=== PATIENT | male | born 1985 | race Caucasian/White ===

== ENCOUNTER 2024-06-15 09:45 | Emergency (ER) | payer MEDICAID, SELFPAY ==
[2024-06-15 09:55] VITALS: BP 147/105; PULSE 84; TEMP 36.6; O2SAT 98; BMI 31.3
[2024-06-15 10:02] VITALS: RESP 20
--- NOTE | 2024-06-15 10:05 | ED_ITS ---
HPI - General Adult General Chief complaint: Unspecified Complaint, Adult Stated complaint: intermittent chest pain,blurry vision,dizzy Time Seen by Provider: 06/15/24 09:51 History of Present Illness HPI narrative: PMH HTN. 2 days of symptoms of numbness/ tingling in lower extremities , sharp CP experience 2 days ago, headache during event rating 7 at time. Denies CP and headache. C/o of blurry vision . Takes Adderall but has not been taking it per pt report. 39-year-old man presenting to the emergency department with a number of concerns. Couple of weeks ago was in [facility] and had onset of right eye with blurry vision and some mild dizziness. Headache as well. Pharmacist suggested that maybe was hypoglycemic and recommended Gatorade and/or candy bar. Seemed to get better. More frequently now when he lays down at night has been having tingling in his hands bilaterally and feet and lower legs; evidently last most of the night. Seems to resolve during the day. Also gets some lower extremity numbness with extended driving. This seems to be different than the tingling issues describing overnight. Denies constipation. Has been having a pain in his left, as demonstrated, lower chest/upper abdomen coming and going over the last 2 months or so. 2 nights ago woke coughing with a terrible headache and right eye blurry vision for 5-10 minutes. Denies a history of heartburn. Did has some chest discomfort left left side briefly at that time as well. Lasted seconds. He has gained approximately 20 lb over the last 6 months. Admits also that diet is not very good disease often out and running around in his job in [employer]. Sometimes drinks on the weekends but generally does not drink much alcohol any more. Is not actually describing weakness. Did note the last time he measured his blood pressures they were rather elevated. This had been on a day when he did take his Adderall. Family history of Alzheimer's in a grandparent but otherwise no neurological disorders identified. Related Data Allergies Allergy/AdvReac Type Severity Reaction Status Date / Time No Known Drug Allergies Allergy Verified 06/15/24 10:01 Review of Systems Status of ROS: Reports: 6 or more systems reviewed and unremarkable except as noted in History and below PFSH PFS Social History Smoking Status: Never smoker How often do you have a drink containing alcohol: monthly or less How many standard drinks containing alcohol do you have on a typical day: 1 or 2 How often do you have six or more drinks on one occasion: Never AUDIT-C Alcohol total score: 1 Non-prescribed substance use: denies use Exam Narrative: Exam Narrative: Pleasant. NAD. Cranial nerves 2-12 intact. Moving all extremities without difficulty; full strength throughout. Sensation intact. Skin is warm and dry without apparent rash. Heart in regular rate and rhythm without murmur rub or gallop. Lungs are clear. Abdomen is overweight and soft. No wall defect appreciated. No masses. He is tender in the left upper abdomen in a rather discrete area about or just below probable stomach and he is also tender a little bit along the left midclavicular line anterior rib edge. Is also little tender left upper chest mid pectoralis. Neck is supple. Back and neck or nontender. Lungs are clear. Equal pulses upper extremities Const: Vital Signs, click to edit/add: Vital Signs - 24 hr 06/15/24 09:55 06/15/24 10:02 06/15/24 11:40 Temperature 97.8 F Pulse Rate [Pulse Oximeter] 84 85 Respiratory Rate 20 Blood Pressure [Le ft Upper Arm] 147/105 H 140/97 H Pulse Oximetry 98 Oxygen Delivery Me thod Room Air 06/15/24 11:43 06/15/24 16:25 Temperature Pulse Rate [Pulse Oximeter] 87 Respiratory Rate Blood Pressure [Le ft Upper Arm] 140/97 H 146/103 H Pulse Oximetry Oxygen Delivery Me thod Documenting provider has reviewed patient's vital signs: yes Course Vital Signs Vital signs: Initial Vital Signs Temperature 97.8 F 06/15/24 09:55 Temperature Source Temporal Artery Scan 06/15/24 09:55 Pulse Rate 84 06/15/24 09:55 Pulse Rhythm Regular 06/15/24 09:55 Blood Pressure 147/105 H 06/15/24 09:55 Blood Pressure Mean 119 H 06/15/24 09:55 Pulse Oximetry 98 06/15/24 09:55 Oxygen Delivery Method Room Air 06/15/24 09:55 Vital Signs Temperature 97.8 F 06/15/24 09:55 Pulse Rate 84 06/15/24 09:55 Blood Pressure 147/105 H 06/15/24 09:55 Pulse Oximetry 98 06/15/24 09:55 Oxygen Delivery Method Room Air 06/15/24 09:55 Temperature 97.8 F 06/15/24 09:55 Pulse Rate 87 06/15/24 16:25 Respiratory Rate 20 06/15/24 10:02 Blood Pressure 146/103 H 06/15/24 16:25 Pulse Oximetry 98 06/15/24 09:55 Oxygen Delivery Method Room Air 06/15/24 09:55 Medications Administered Medications: Discontinued Medications Generic Name Dose Route Start Last Admin Trade Name Frederick PRN Reason Stop Dose Admin Sodium Chloride 1,000 mls @ 1,000 mls/hr 06/15/24 12:33 06/15/24 13:28 0.9 % Sodium Chloride 1000 Ml IV 06/15/24 13:32 Infused .Q1H ONE Infusion Medical Decision Making MDM Narrative Medical decision making narrative: Differential includes vascular dissection, MS, thrombotic event/CVA, tachyarrhythmia, constipation, anxiety, migrainous type headache with blurry vision, normal pressure hydrocephalus, dehydration. Screen initially with labs. I am less concerned about this abdominal pain at this time. Perhaps this could be worked up outpatient. Given how he describes his diet, would strongly recommend making some changes over the next couple weeks reassessing abdominal discomfort. There is a little bit of chest wall pain here as well. More concerned about the transient blurring of vision and headache and peripheral paresthesia. Is not a persistent thing that 1 might associate with vitamin deficiency/alcoholism. No family history of unusual neurological disorders. I think some of his symptoms including some discomfort in his upper thigh at times or numbness while seated can be explained by increased abdominal girth/weight gain. Labs are unremarkable. Did discuss these findings with Neurology on-call and would support MRI and MRA head and neck with differential as noted above. Mr. Levin had presented to the clinic earlier today and blood was collected; he does not believe that this was run for anything. He has been fasting and would appreciate recheck of his cholesterol/lipid panel. I can add this on to labs here today and he can follow these up in primary care clinic. He indicates that cholesterol has been high before. MRI MRA head neck is overall reassuring. No further events during time in the emergency department. See patient discharge plan for further discussion Medical Records Medical records reviewed: Yes I reviewed the patient's medical records (None available) Lab Data Lab results reviewed: Yes I reviewed the patient's lab results Labs: Lab Results 06/15/24 06/15/24 06/15/24 Range/Units 10:25 10:38 13:09 WBC 8.25 (4.50-11.00) K/uL RBC 5.66 (4.30-5.90) m/uL Hgb 16.1 (13.5-17.5) gm/dL Hct 48.6 (37.0-53.0) % MCV 86 (80-100) fL MCH 28 (26-34) pg MCHC 33 (32-36) gm/dL RDW Coeff of Irene 12.5 (11.5-15.5) % Plt Count 327 (140-440) K/uL Neut % (Auto) 51.6 (42.0-72.0) % Lymph % (Auto) 36.1 (20-44) % [place] % (Auto) 9.0 (0.0-11.0) % Eos % (Auto) 2.3 (0.0-7.0) % Baso % (Auto) 0.2 (0.0-3.0) % Neut # (Auto) 4.25 (1.7-7.0) K/uL Lymph # (Auto) 2.98 H (0.90-2.90) K/uL [place] # (Auto) 0.70 (0.00-0.90) K/UL Eos # (Auto) 0.19 (0.00-0.50) K/uL Baso # (Auto) 0.02 (0.00-0.30) K/uL Abs Immat Gran (auto) 0.07 (0.00-0.30) K/uL Imm/Tot Granulo (auto) 0.8 % D-Dimer Quant (PE/DVT) < 0.27 (0.00-0.50) ug/ml Sodium 138 (135-149) mmol/L Potassium 4.2 (3.6-5.1) mmol/L Chloride 104 (96-114) mmol/L Carbon Dioxide 26 (20-32) mmol/L Anion Gap 8 (7-15) mEq/L BUN 17 (5-24) mg/dL Creatinine 1.0 (0.5-1.5) mg/dL Estimated Creat Clear 100.16 Estimated GFR 99 ml/min Glucose 99 (60-115) mg/dL Calcium 9.1 (8.4-10.6) mg/dL Magnesium 2.3 (1.5-2.6) mg/dL Troponin I < 0.01 L (0.01-0.04) ng/mL C-Reactive Protein < 0.5 L (0.5-1.0) mg/dL NT-Pro-B Natriuret Pep < 20 pg/mL Triglycerides 286 H (40-149) mg/dL Cholesterol 192 (90-199) mg/dL LDL Cholesterol, Calc 99 (<100) mg/dL HDL Cholesterol 36 L (>=40) mg/dL Lab Acknowledgement Test Added POC Troponin I 0.00 L (0.01-0.04) ng/ml ECG Data Attestation: I personally reviewed and interpreted this ECG as follows: (Normal sinus rhythm at a rate of 81 without ischemic changes) Discharge Plan Discharge Clinical Impression: Malaise, Paresthesia, High blood pressure, Headache Patient Disposition: Home, Self-Care Condition: Stable Additional Instructions: Other than blood pressure, everything looked quite good here today. Stay well-hydrated trying to drink 2-3 L of water daily, depending on level exertion. Improving your diet and physical activity should make a big difference for you. Would schedule follow-up with your primary care provider for a few weeks from now to recheck blood pressures and discuss your efforts at weight loss and healthy living. Reassess your abdominal discomfort around that time too. Try to get in a little heart pumping exercise most days of the week; this should also include weights. Keep getting quality and regular sleep. Follow Up/Referrals: Nelly Paz DO [Primary Care Provider] - Stand Alone Forms: [facility] Info Instructions
--- OUTSIDE RECORDS SUMMARY | 2024-06-15 10:37 | XMS_ITS | Referral Summary ---
Author Organization [facility] Address [address] [place] [address]. [place] [address] Care Team Providers Care Enamel Finisher Name Role Phone Nelly Paz Primary Care Provider [phone] Allergies No known active allergies Medications Medication Sig Dispensed Refills Start Date End Date Status amphetamine-dextroamphe tamine (ADDERALL XR) 20 MG 24 hr capsule Take 20 mg by mouth 08/11/2018 Active Social History Tobacco Use Types Packs/Day Years Used Date Smoking Tobacco: Never Smokeless Tobacco: Never Alcohol Use Standard Drinks/Week Comments Yes 0 (1 standard drink = 0.6 oz pur e alcohol) occasional Sex and Gender Information Value Date Recorded Sex Assigned at Not on file Gender Identity Not on file Sexual Orientation Not on file Last Filed Vital Signs Vital Sign Reading Time Taken Comments Blood Pressure 144/96 01/30/2019 3:00 PM DEMAND GENERATION MANAGER Pulse 86 01/30/2019 3:00 PM DEMAND GENERATION MANAGER Temperature 36.7 ??C (98.1 ??F) 01/30/2019 1:02 PM CS T Respiratory Rate 15 01/30/2019 3:00 PM DEMAND GENERATION MANAGER Oxygen Saturation 98% 01/30/2019 3:00 PM DEMAND GENERATION MANAGER Inhaled Oxygen Concentration - - Weight 82.4 kg (181 lb 10.5 oz) 01/30/2019 1:02 PM DEMAND GENERATION MANAGER Height 172.7 cm (5' 8) 10/29/2011 2:59 PM DEMAND GENERATION MANAGER Body Mass Index 27.62 10/29/2011 2:59 PM DEMAND GENERATION MANAGER Plan of Treatment Not on file Care Teams Enamel Finisher Relationship Specialty Start Date End Date Nelly Paz DO PCP - General Family Practice 01/30/19
--- OUTSIDE RECORDS SUMMARY | 2024-06-15 10:37 | XMS_ITS | Clinical Summary ---
Author Organization [facility] Address [place], [place] [address] Care Team Providers Care Central Supply Aide Name Role Phone Brandi Nelly Margi Primary Care Provider Allergies No known active allergies Medications Medication Sig Dispensed Refills Start Date End Date Status valACYclovir (VALTREX) 1 gram tabletIndications:H erpes labialis Take 2 Tablets (2 g) by mouth two times daily. 8 Tablet 6 12/11/2023 Active dextroamphetamine-a mphetamine (Adderall XR) 20 mg Extended-Release capsuleIndications: Attention deficit hyperactivity disorder (ADHD), combined type Take 1 Capsule (20 mg) by mouth once daily. 30 Capsule 05/28/2024 4 Active dextroamphetamine-a mphetamine (Adderall XR) 20 mg Extended-Release capsuleIndications: Attention deficit hyperactivity disorder (ADHD), combined type Take 1 Capsule (20 mg) by mouth once daily. 30 Capsule 06/27/2024 4 Active dextroamphetamine-a mphetamine (Adderall XR) 20 mg Extended-Release capsuleIndications: Attention deficit hyperactivity disorder (ADHD), combined type Take 1 Capsule (20 mg) by mouth once daily. 30 Capsule 07/27/2024 Active dextroamphetamine-a mphetamine (AdderalL) 10 mg tabletIndications:A ttention deficit hyperactivity disorder (ADHD), combined type Take 1 Tablet (10 mg) by mouth once daily. 30 Tablet 05/28/2024 4 Active dextroamphetamine-a mphetamine (AdderalL) 10 mg tabletIndications:A ttention deficit hyperactivity disorder (ADHD), combined type Take 1 Tablet (10 mg) by mouth once daily. 30 Tablet 06/27/2024 4 Active dextroamphetamine-a mphetamine (AdderalL) 10 mg tabletIndications:A ttention deficit hyperactivity disorder (ADHD), combined type Take 1 Tablet (10 mg) by mouth once daily. 30 Tablet 07/27/2024 Active fluticasone (50 mcg per actuation) nasal solution (FLONASE)Indication s:Chronic nasal congestion Inhale 1 [place] to both nostrils once daily. 16 g 3 12/20/2022 4 Discontinue d(*Patient states no longer taking) dextroamphetamine-a mphetamine (Adderall XR) 20 mg Extended-Release capsuleIndications: Attention deficit hyperactivity disorder (ADHD), combined type Take 1 Capsule (20 mg) by mouth once daily. 30 Capsule 02/09/2024 4 Discontinue d(*Medicati on adjustment) dextroamphetamine-a mphetamine (ADDERALL) 10 mg tabletIndications:A ttention deficit hyperactivity disorder (ADHD), combined type Take 1 Tablet (10 mg) by mouth once daily. 30 Tablet 02/09/2024 4 Discontinue d(*Medicati on adjustment) dextroamphetamine-a mphetamine (AdderalL) 10 mg tabletIndications:A ttention deficit hyperactivity disorder (ADHD), combined type Take 1 Tablet (10 mg) by mouth once daily. 30 Tablet 04/27/2024 4 Discontinue d(*Medicati on adjustment) dextroamphetamine-a mphetamine (Adderall XR) 20 mg Extended-Release capsuleIndications: Attention deficit hyperactivity disorder (ADHD), combined type Take 1 Capsule (20 mg) by mouth once daily. 30 Capsule 04/27/2024 4 Discontinue d(*Medicati on adjustment) Active Problems Problem Noted Date Diagnosed Date LIZBET 01/16/2023 AHI- 11 02/07/2023 Hypertriglyceridemia 11/18/2021 Dyslipidemia 09/12/2019 Gambling and betting 05/30/2017 History of marijuana use 08/07/2016 Myopia of both eyes with astigmatism 08/02/2016 Attention deficit hyperactivity disorder (ADHD) 07/04/2016 Controlled substance agreement signed 07/04/2016 Overview: Diagnosis: ADHD Adderall XR 20mg daily #30/month and Adderall 10mg daily no later than noon #30/month. Toxassure 07/04/2016 with THC. Repeat drug test 08/2016. [facility] pharmacy. Adjustment disorder with depressed mood 09/14/20 10 Viral warts, unspecified 12/05/2008 Resolved Problems Problem Noted Date Diagnosed Date Resolved Date Elevated blood pressure read ing without diagnosis of hypertension 11/09/2010 12/08/2015 Encounters Date Type Department Care Team Description 06/15/2024 7:55 AM CDT Office Visit [facility] [place] [address] [place] [address] Andreea Sellers PA Numbness (Legs and feet, one episode of chest pain and loss of vision in right eye ) 06/14/2024 11:00 AM CDT Nurse/Clinic Staff Only [facility] [address] [place] [address] Rosey Stone Rn Primary Blood Pressure 06/14/2024 Telephone [facility] [place] [id number] [place] [id number] Nelly Paz DO 06/14/2024 Telephone [facility] [place] [address] [place] [address] Andreea Sellers PA Appointment 06/14/2024 Travel 05/28/2024 10:45 AM CDT Office Visit [facility] [place] [address] [place] [address] Nelly Paz DO Medication Management (39 yo ) 05/28/2024 Travel from Last 3 Months Immunizations Name Administration Dates Next Due Influenza, IIV4 09/09/2019,09/25/2017,08/15/2016 ,12/08/2015 Influenza, IIV4 (=>6mos) MDV 09/11/2018 Td (Age >=7 Years) 12/10/2019,12/04/2005 Tdap 05/11/2010 Family History Medical History Relation Name Comments Psychiatric illness Mother depressi on Hypertension Paternal Grandfather Relation Name Status Comments Mother Paternal Grandfather Social History Tobacco Use Types Packs/Day Years Used Date Smoking Tobacco: Never Smokeless Tobacco: Never Tobacco Cessation:Counseling Given: No Alcohol Use Standard Drinks/Week Comments Yes 0 (1 standard drink = 0.6 oz pur e alcohol) socially PHQ-2 Answer Date Recorded PHQ-2 TOTAL SCORE 0 12/11/2023 Social Connections Answer Date Recorded Frequency of Communication with Friends and Fami ly Not on file 12/01/2021 Financial Resource Strain Answer Date R ecorded Difficulty of Paying Living Expenses Not on file 12/01/2021 Difficulty of Paying Living Expenses Not on file 12/01/2021 Sex and Gender Information Value Date Recorded Sex Assigned at Not on file Gender Identity Not on file Sexual Orientation Not on file Obstetrics History Last Filed Vital Signs Vital Sign Reading Time Taken Comments Blood Pressure 124/82 06/15/2024 8:05 AM CDT Pulse 97 06/15/2024 8:05 AM CDT Temperature 38.6 ??C (101.5 ??F) 11/07/2023 8:[address] Respiratory Rate 16 08/27/2016 1:38 PM CDT Oxygen Saturation 98% 06/15/2024 8:05 AM CDT Inhaled Oxygen Concentration - - Weight 96.2 kg (212 lb) 06/15/2024 8:05 AM CDT Height 175.3 cm (5' 9) 06/15/2024 8:05 AM CDT Body Mass Index 31.31 06/15/2024 8:05 AM CDT Plan of Treatment Upcoming Encounters Date Type Department Care Team (Late st Contact Info) Description 11/19/2024 9:30 AM COMMERCIAL LOAN ANALYST Office [place] [facility] [place] [address] [place] [address] [place] [address] [place] [address] Health Maintenance Due Date Last Done Comments COVID-19 vaccine series ( season) 2023 Influenza for age 9-49 08/01/2024 , 09/11/2018, 09/25/2017, Additional history exists Depression screening for age 12+ 12/11/2024 12/11/2023, 07/04/2022, 05/17/2021, Additional history exists BMI (ht and wt on same day) for age 18+ 06/15/2025 06/15/2024, 05/28/2024, 11/07/2023, Additional history exists Lipids for age 35-44 12/11/2028 12/11/2023, 11/16/2021, 09/09/2019, Additional history exists Tetanus booster 12/10/2029 12/10/2019, 05/01, 12/04/2005 Tdap Completed 05/11/2010 HIV for age 15-65 Completed 03/29/2021, , 06/11/2019, Additional history exists Hepatitis C screening for age 18-79 Completed 03/29/2021, 12/10/2019, 06/11/2019 Pneumococcal series for age 6-64 Aged Out No longer eligible based on patient's age to complete this topic Goals Goal Patient Goal Type Associated Problems Recent Progress Patient-Stated? Author BLOOD PRESSURE-MA INTAINS BP LESS THAN 130/80 Blood Pressure No Nelly Paz, Procedures Procedure Name Priority Date/Time Associated Diagnosis Comments LIPID PANEL W REFLEX MEASURED LDL Routine 12/11/2023 10:59 AM COMMERCIAL LOAN ANALYST Dyslipidemia ANTI HIV 1/2 Routine 03/29/2021 3:30 PM CDT Exposure to potentially hazardous body fluids Urinary frequency ANTI HCV Routine 03/29/2021 3:30 PM CDT Exposure to potentially hazardous body fluids Urinary frequency from Last 3 Months or Most Recently Relevant to Health Maintenance Results * (ABNORMAL) LIPID PANEL W REFLEX MEASURED LDL (12/11/2023 10:59 AM COMMERCIAL LOAN ANALYST) CHOLESTEROL,TOTAL 229(H) 100 - 199 mg/dL 12/11/2023 3:44 PM COMMERCIAL LOAN ANALYST [facility] Comment: Cholesterol, Total Reference Ranges Desirable <200 mg/dL Borderline 200-239 mg/dL High >=240 mg/dL TRIGLYCERIDES 284(H) <150 mg/dL 12/11/2023 3:44 PM COMMERCIAL LOAN ANALYST [facility] HDL CHOLESTEROL 42 >40 mg/dL 3:44 PM COMMERCIAL LOAN ANALYST [facility] NON-HDL CHOLESTEROL 187(H) <145 mg/dl 12/11/2023 3:44 PM COMMERCIAL LOAN ANALYST [facility] CHOL/HDL RATIO 5.45(H) <4.50 12/11/2023 3:44 PM COMMERCIAL LOAN ANALYST [facility] LDL CHOLESTEROL 130 <=130 mg/dL 12/11/2023 3:44 PM COMMERCIAL LOAN ANALYST [facility] VLDL CHOLESTEROL 57(H) <=30 mg/dL 12/11/2023 3:44 PM COMMERCIAL LOAN ANALYST [facility] PROVIDER ORDERED STATUS FASTING 12/11/2023 3:44 PM COMMERCIAL LOAN ANALYST [facility] Blood BLOOD SPECIMEN / Unknown Venipuncture / Unknown 12/11/2023 10:59 AM COMMERCIAL LOAN ANALYST 12/11/2023 10:59 AM COMMERCIAL LOAN ANALYST Nelly Paz DO CHEMISTRY Performing Organization Address City/[facility]/ZIP Co de Phone Number [facility] [address] [place] [address], * ANTI HCV (03/29/2021 3:30 PM CDT) HEPATITIS C ANTIBODY Non-React shivani Non-React shivani 03/30/2021 5:07 PM CDT [facility] Comment:Antibodies to HCV no t detected; does not exclude the possibility of exposure to HCV. Blood BLOOD SPECIMEN / Unknown Venipuncture / Unknown 03/29/2021 3:30 PM CDT 03/29/2021 3:30 PM CDT Nelly Paz DO SEND OUTS Performing Organization Address City/[facility]/ZIP Co de Phone Number [facility] [address] [place] [address], * ANTI HIV 1/2 (03/29/2021 3:30 PM CDT) HIV-1/HIV-2 ANTIBODY Non-Reacti ve Non-Reacti ve 03/30/2021 5:10 PM CDT [facility] Comment:HIV-1 p24 and HIV-1/ HIV-2 Ab not detected. Blood BLOOD SPECIMEN / Unknown Venipuncture / Unknown 03/29/2021 3:30 PM CDT 03/29/2021 3:30 PM CDT Nelly Paz DO SEND OUTS [facility] [address] [place] [address], from Last 3 Months or Most Recently Relevant to Health Maintenance Care Teams Central Supply Aide Relationship Specialty [place] [address] [address] [place], [place] [id number] PCP - General Family Practice 06/12/16
--- OUTSIDE RECORDS SUMMARY | 2024-06-15 10:37 | XMS_ITS | Clinical Summary ---
Author Organization [facility] Address [address] [place] [address]. [place] [address] Care Team Providers Care Commission Associate Name Role Phone Nelly Paz DO Primary Care Provider [phone] Allergies No known active allergies Medications Medication [...] Comments Blood Pressure 144/96 01/30/2019 3:00 PM PHERESIS SPECIALIST Pulse 86 01/30/2019 3:00 PM PHERESIS SPECIALIST Temperature 36.7 ??C (98.1 ??F) 01/30/2019 1:02 PM CS T Respiratory Rate 15 01/30/2019 3:00 PM PHERESIS SPECIALIST Oxygen Saturation 98% 01/30/2019 3:00 PM PHERESIS SPECIALIST Inhaled Oxygen Concentration - - Weight 82.4 kg (181 lb 10.5 oz) 01/30/2019 1:02 PM PHERESIS SPECIALIST Height 172.7 cm (5' 8) 10/29/2011 2:59 PM PHERESIS SPECIALIST Body Mass Index 27.62 10/29/2011 2:59 PM PHERESIS SPECIALIST Plan of Treatment Not on file Care Teams Commission Associate Relationship Specialty Start Date End Date Nelly Paz DO PCP - General Family Practice 01/30/19
[2024-06-15 10:53] LABS: Basophils Absolute Auto 0.02 K/uL (0.00-0.30); Basophils Percent Auto 0.2 % (0.0-3.0); Eosinophils Absolute Auto 0.19 K/uL (0.00-0.50); Eosinophils Percent Auto 2.3 % (0.0-7.0); Hematocrit 48.6 % (37.0-53.0); Hemoglobin* 16.1 gm/dL (13.5-17.5); Immature Granulocytes Abs Auto 0.07 K/uL (0.00-0.30); Immature Granulocytes Pct Auto 0.8 %; Lymphocytes Absolute Auto 2.98 K/uL (0.90-2.90); Lymphocytes Percent Auto 36.1 % (20-44); Mean Corpuscular HGB Conc 33 gm/dL (32-36); Mean Corpuscular Hemoglobin 28 pg (26-34); Mean Corpuscular Volume 86 fL (80-100); Neutrophils Absolute Auto 4.25 K/uL (1.7-7.0); Neutrophils Percent Auto 51.6 % (42.0-72.0); Platelet Count* 327 K/uL (140-440); RDW Coefficient of Variation % 12.5 % (11.5-15.5); Red Blood Count 5.66 m/uL (4.30-5.90); White Blood Count* 8.25 K/uL (4.50-11.00)
[2024-06-15 10:56] LABS: Slide Review Reflex No
[2024-06-15 11:04] LABS: Chloride* 104 mmol/L (96-114); Sodium* 138 mmol/L (135-149)
[2024-06-15 11:05] LABS: Potassium* 4.2 mmol/L (3.6-5.1)
[2024-06-15 11:07] LABS: Est. Creatinine Clearance* 100.16; Estimated Glomerular Filt Rate 99 ml/min
[2024-06-15 11:08] LABS: Anion Gap 8 mEq/L (7-15); Blood Urea Nitrogen* 17 mg/dL (5-24); Calcium* 9.1 mg/dL (8.4-10.6); Carbon Dioxide* 26 mmol/L (20-32); Glucose* 99 mg/dL (60-115)
[2024-06-15 11:09] LABS: Magnesium* 2.3 mg/dL (1.5-2.6)
[2024-06-15 11:19] LABS: C Reactive Protein* < 0.5 mg/dL (0.5-1.0); NT Pro B Type NatriureticPept* < 20 pg/mL
[2024-06-15 11:21] LABS: Troponin I* < 0.01 ng/mL (0.01-0.04)
[2024-06-15 11:38] LABS: D Dimer Quantitative* < 0.27 ug/ml (0.00-0.50)
[2024-06-15 11:40] VITALS: BP 140/97; PULSE 85
[2024-06-15 11:43] VITALS: BP 140/97
--- NOTE | 2024-06-15 12:31 | CRLHL7_ITS ---
For Patients: As a result of the Century Cures Act, medical imaging exams and procedure reports are released immediately into your electronic medical record. You may view this report before your referring provider. If you have questions, please contact your health care provider. Indication: Headaches, positional paresthesias. Technique: MRI Head: performed before and after IV contrast. MRA Head: performed without IV contrast. MRA Neck: performed before and after IV contrast. Gadolinium-based contrast agent: 20 mL Dotarem IV contrast. Comparison: No prior studies available for comparison at this institution. Findings: MRI Head: No evidence of acute ischemia. Normal signal intensity of the brain parenchyma. No focus of abnormal enhancement. The ventricles are normal in size. Bone marrow signal intensity of the calvarium is within normal limits. The orbits are unremarkable. The paranasal sinuses and mastoid air cells are predominantly clear. MRA Head: The intracranial segments of the internal carotid arteries and basilar artery are widely patent. The anterior middle and posterior cerebral arteries and proximal branches are unremarkable. No evidence of an aneurysm over 3 mm. No high-flow AV malformation. No high-grade stenosis. MRA Neck: The bilateral common carotid arteries internal and external carotid arteries are widely patent. No stenosis near the common carotid bifurcations. Bilateral vertebral arteries also appear widely patent. Impression: 1. Unremarkable contrast-enhanced MRI of the brain. 2. Unremarkable MRA of the head and neck. Dictated by Keaton Campbell MD @ 06/15/2024 4:46:55 PM (Electronically Signed)
--- NOTE | 2024-06-15 12:31 | CRLHL7_ITS ---
For Patients: As a result of the Century Cures Act, medical imaging exams and procedure reports are released immediately into your electronic medical record. You may view this report before your referring provider. If you have questions, please contact your health care provider. Please see concurrently performed MRI brain report for dictation. Dictated by Keaton Campbell MD @ 06/15/2024 4:47:25 PM (Electronically Signed)
--- NOTE | 2024-06-15 12:31 | CRLHL7_ITS ---
For Patients: As a result of the Century Cures Act, medical imaging exams and procedure reports are released immediately into your electronic medical record. You may view this report before your referring provider. If you have questions, please contact your health care provider. Please see concurrently performed MRI brain report for dictation. Dictated by Keaton Campbell MD @ 06/15/2024 4:48:00 PM (Electronically Signed)
[2024-06-15] MEDS: 0.9 % SODIUM CHLORIDE 1000 ml 1,000 ML IV (12:39)
--- NOTE | 2024-06-15 13:26 | ED.NURSE ---
states it is okay for patient to eat. Pt eating now.
[2024-06-15 13:47] LABS: Cholesterol* 192 mg/dL (90-199); HDL Cholesterol* 36 mg/dL (>=40); LDL Cholesterol Calculated 99 mg/dL (<100); Triglycerides* 286 mg/dL (40-149)
[2024-06-15 16:25] VITALS: BP 146/103; PULSE 87
== END 2024-06-15 17:41 | disposition home or self-care (01) ==
PROVIDERS: Emergency Provider Family Medicine; PCP Family Medicine
DX: R51.9 Headache, unspecified (principal)
CPT/HCPCS: 36415; 70544; 70549; 70553; 80048; 80061; 83735; 83880; 84484; 85025; 85379; 86140; 93005; 99284; A9575; J7030